=== PATIENT | female | born 1995 | race Caucasian/White ===

== ENCOUNTER 2017-07-13 02:11 | Emergency (ER) | payer OTHER ==
[2017-07-13 02:18] VITALS: RESP 16
--- NOTE | 2017-07-13 03:57 | EDPHY ---
H & P Stated Complaint: allergic reaction HPI/ROS: HPI The patient presents with itchy rash of her arms and legs which has been present for the last several days. Several months ago, she developed periorbital edema and itching after using a fake eyelashes. She is being treated currently for elva orbital eczema with topical metronidazole and minocycline p. o.. She is wondering if she is having an allergic reaction to 1 of these medications. She has had some rhinorrhea and her throat has felt itchy as well. She is being followed by her primary care doctor currently. REVIEW OF SYSTEMS Constitutional: No fever, no chills. Eyes: No discharge. ENT: No sore throat. Cardiovascular: No chest pain, no palpitations. Respiratory: No cough, no shortness of breath. Gastrointestinal: No abdominal pain, no vomiting. Genitourinary: No hematuria. Musculoskeletal: No back pain. Skin: No rashes. Neurological: No headache. PMHx: Healthy Soc Hx: Housed PHYSICAL General Appearance: Alert, no distress Eyes: Elva orbital erythema and flaking of skin ENT, Mouth: Mucous membranes moist Respiratory: There are no retractions, lungs are clear to auscultation Cardiovascular: Regular rate and rhythm Gastrointestinal: Abdomen is soft and non-tender, no masses, bowel sounds normal Neurological: A&O, moves all extremities Skin: Warm and dry, diffuse papular erythematous rash with areas of excoriation Musculoskeletal: Neck is supple non tender Extremities: symmetrical, full range of motion Psychiatric: Patient is oriented X 3, there is no agitation Source: Patient Exam Limitations: No limitations - Personal History LMP (Females 10-55): 22-28 Days Ago Current Tetanus/Diphtheria Vaccine: Yes Current Tetanus Diphtheria and Acellular Pertussis (TDAP): Yes - Medical/Surgical History Hx Asthma: No Hx Chronic Respiratory Disease: No Hx Diabetes: No Hx Cardiac Disease: No Hx Renal Disease: No Hx Cirrhosis: No Hx Alcoholism: No Hx HIV/AIDS: No Hx Splenectomy or Spleen Trauma: No - Social History Smoking Status: Never smoked Constitutional: Initial Vital Signs Temperature (C) 36.4 C 07/13/17 02:15 Heart Rate 77 07/13/17 02:15 Respiratory Rate 16 07/13/17 02:15 Blood Pressure 148/89 H 07/13/17 02:15 O2 Sat (%) 100 07/13/17 02:15 O2 Delivery Mode Room Air Allergies/Adverse Reactions: No Known Allergies Allergy (Unverified 07/13/17 03:58) Home Medications: Medication Instructions Recorded predniSONE [Prednisone] 40 mg PO DAILY 4 Days tablet 07/13/17 Medical Decision Making Differential Diagnosis: 22-year-old female, currently being treated with topical and oral antibiotics for periorbital eczema presents with rash of arms and legs associated with rhinorrhea and tingling sensation in throat. On exam, vital signs are normal, she has a rash consistent with eczema, there is no urticaria present, posterior pharynx appears normal. I feel the rash on her arms and legs is most consistent with eczema, could be related to her antibiotics, however I feel this is less likely. I have encouraged her to use plenty of ointment. I will give her a short course of prednisone because of the large surface area of the eczema, I do not feel topical steroids would be a good idea. - Data Points Medications Given: Discontinued Medications Prednisone (Prednisone) 40 mg PO EDNOW ONE Stop: 07/13/17 03:59 Last Admin: 07/13/17 04:09 Dose: 40 mg Departure - Departure Disposition: Home, Routine, Self-Care Clinical Impression: Rash Allergic reaction Qualifiers: Encounter type: initial encounter Qualified Code(s): T78.40XA - Allergy, unspecified, initial encounter Condition: Good Instructions: Prednisone (By mouth), Eczema (ED) Additional Instructions: I recommend you take Benadryl 25 mg every 6 hr as needed for itching. If you have difficulty taking this, you can switch to Claritin or Irene once daily. Please follow-up with your primary care doctor or sales representative publications. Referrals: NONE *PRIMARY CARE P,. [Primary Care Provider] - As per Instructions Prescriptions: predniSONE [Prednisone] 40 mg PO DAILY 4 Days tablet
[2017-07-13] MEDS ORDERED: predniSONE 20 MG TAB PO ONE (03:58)
[2017-07-13 04:16] VITALS: BP 131/83; PULSE 76; TEMP 97.9; O2SAT 96
== END 2017-07-13 04:14 | disposition home or self-care (01) ==
DX: R21 Rash and other nonspecific skin eruption (principal); T36.4X5A Adverse effect of tetracyclines, initial encounter; T37.8X5A Adverse effect of other specified systemic anti-infectives and antiparasitics, initial encounter
CPT/HCPCS: J7512